=== PATIENT | male | born 1985 | race Caucasian/White ===

== ENCOUNTER 2022-02-14 19:02 | Emergency (ER) | payer BC ==
[2022-02-14] MEDS ORDERED: Morphine 10 MG/ML VIAL ONE (19:25)
[2022-02-14] MEDS ORDERED: Ondansetron ODT 4 MG TAB ONE (19:25)
[2022-02-14] MEDS ORDERED: Midazolam HCl 5 mg/ml Vial ONE (20:24)
[2022-02-14] MEDS ORDERED: Midazolam HCl 2 mg/2 ml Vial ONE (21:13)
== END 2022-02-14 22:05 | disposition home or self-care (01) ==
LOC: BURERS 19:02
DX: S43.004A Unspecified dislocation of right shoulder joint, initial encounter (principal); F17.210 Nicotine dependence, cigarettes, uncomplicated; W18.30XA Fall on same level, unspecified, initial encounter
CPT/HCPCS: 23650; 96372; 99152; 99153; J2250; J2270; Q0162